=== PATIENT | male | born 2000 | race Caucasian/White ===

== ENCOUNTER 2023-05-14 17:17 | Emergency (ER) | payer SELFPAY ==
[2023-05-14 18:05] VITALS: BP 112/82; PULSE 65; RESP 16; O2SAT 100; BMI 50.3
--- NOTE | 2023-05-14 18:06 | ED_ITS ---
HPI - Extremity Injury (Upper) General Chief Complaint: Wound/Laceration Stated Complaint: split open finger at work Time Seen by Provider: 05/14/23 18:25 Source: patient, RN notes reviewed and old records reviewed Mode of arrival: ambulatory Limitations: no limitations History of Present Illness HPI narrative: 23 yo male with no significant past medical history presenting today with a laceration to his right pointer finger s/p cutting it on a putty knife at work 2 hours ago. Medic on site cleansed the area and placed a butterfly stitch, advising him to come to the ED for further evaluation. Reports mild pain to the R index finger. Tetanus unknown, denies injury to other area MD complaint: injury to: right Related Data Allergies Allergy/AdvReac Type Severity Reaction Status Date / Time No Known Allergies Allergy Verified 05/14/23 18:12 Review of Systems Review of Systems: Constitutional: No Fever, No Chills ENT/Mouth: No Ear Pain, No Nasal Congestion Cardiovascular: No Chest Pain, No SOB Respiratory: No Cough, No Sputum, No Wheezing Gastrointestinal: No Nausea, No Vomiting, No Diarrhea, No Constipation, No Abdominal pain Genitourinary: No Dysuria, No Urinary Frequency Musculoskeletal: + R pointer finger pain, No joint pain, No Myalgias, No Joint Swelling Skin: + skin laceration, No rash Neuro: No Weakness, No Numbness, No Paresthesias Yes all other systems are reviewed and are negative Constitutional: Constitutional: Reports as per HPI [facility] Past Medical History Attestation statement: The following information was validated with the patient. Source: old records reviewed and nursing notes reviewed Social History Social History Advance Directives: No Advance Directives Information Provided: No Physical Exam Vital Signs: Vital Signs: Last Vital Signs Temp 98.2 F 05/14/23 18:31 Pulse 54 05/14/23 18:31 Resp 16 05/14/23 18:31 BP 113/83 05/14/23 18:31 Pulse Ox 98 05/14/23 18:31 O2 Del Method Room Air 05/14/23 18:31 BMI result Body Mass Index 50.3 Const: General: cooperative, healthy appearing and no acute distress Orientation/consciousness: patient oriented x3 Limitations: no limitations Resp: Effort & Inspection: normal respiratory effort and no respiratory distress Cardio: Rate: regular rate Heart sounds: S1 normal heart sound present and S2 normal heart sound present Peripheral pulses: radial pulses present and ulnar radial pulses present Skin: Other: + 1cm linear superficial laceration noted over the right 2nd digit PIP. Underlying structures appear intact. NV intact. Normal range of motion. NV intact Rashes: no rashes Neuro: General: patient oriented x3 and tone normal Gait exam (Neuro): Normal gait present Extrem: General: Yes normal to inspection Medications Administered Discontinued Medications Generic Name Dose Route Start Last Admin Trade Name Freq PRN Reason Stop Dose Admin Diphtheria/Tetanus/Acell Pertussis 0.5 ml 05/14/23 18:12 05/14/23 18:19 Diphth,Pertus(Acell),Tet Adult 0.5 Ml Syringe IM 05/14/23 18:13 0.5 ml .ONCE ONE Administration Lidocaine HCl 2 ml 05/14/23 18:12 05/14/23 18:19 Lidocaine Hcl 1 % Mpf 2 Ml Vial INFILTRATI 05/14/23 18:13 2 ml ONCE ONE Administration Medical Decision Making Medical Decision Making MDM Narrative: 23 yo male with no significant past medical history presenting today with a laceration to his right pointer finger s/p cutting it on a putty knife at work 2 hours ago. On exam vital signs stable, NAD, nontoxic appearing physical exam as noted by with superficial laceration to right index finger PIP. Full range of motion and neurovascularly intact. Discussed Dermabond for suture repair, recommended suture repair as it is overlying joint, patient agreeable Will update tetanus and repair wound Results discussed with patient including worrisome signs and symptoms and strict return precautions, and when to return to the emergency department. They verbalized understanding and feel safe for discharge at this time. Differential Diagnosis Differential Diagnoses: The differential diagnosis associated with the presentation includes As above Admission/Observation Consideration of admission/observation: Escalation of care including admission/observation considered Radiology Impression Discussion of test interpretation with radiology: I have reviewed the radiologist's reading. External Record Review External record reviewed: Inpatient record, Office record, Outpatient record, Prior outpatient labs, Prior outpatient radiology, Primary care record and [facility] ED record Tests considered The following testing was considered but not selected: As above Prescription Management I considered prescription management with: Pain Medication and Antibiotic Procedures Laceration Laceration 1: Site: other (2nd digit) Side (If applicable): right Size (cm): 1 Description: linear Depth: simple, single layer Local Anesthetic: lidocaine 1% Amount of anesthesia used (mL): 2 Pre-repair: wound explored, irrigated extensively and deep structures intact Skin layer closed with: nylon Size (cm): 4-0 Number of sutures: 2 Technique: simple, interrupted Discharge Plan Discharge Clinical Impression: Laceration Patient Disposition: Home, Self-Care Instructions: Care For Your Stitches (ED), Laceration (ED) Additional Instructions: Your wounds were repaired today in the emergency department. Keep dry and clean. You need to return to any emergency department, urgent care, or your PCPs office in 7-10 days for suture removal Apply bacitracin and or Neosporin daily Once sutures are removed apply anti scar cream like Mederma If area begins look infected, is red, there is drainage, streaking, or you have fever please return to the emergency department Referrals: Physician,None [Primary Care Provider] - 1 week (For suture removal) Stand Alone Forms: Work/School Release
[2023-05-14] MEDS: Diphth,Pertus(ACell),Tet Adult 0.5 ML SYRINGE IM (18:19)
[2023-05-14] MEDS: Lidocaine HCl 1 % MPF 2 ML VIAL INFILTRATI (18:19)
[2023-05-14 18:31] VITALS: BP 113/83; PULSE 54; RESP 16; TEMP 36.8; O2SAT 98
--- NOTE | 2023-05-14 18:33 | MHC.EDTECH ---
NON STICK DRESSING APPLIED ON PATIENT RIGHT POINTER FINGER ,VITALS SIGN TAKEN .
--- NOTE | 2023-05-14 18:53 | PC.NURSE ---
Patient was discharged prior to this RN coming in.
== END 2023-05-14 18:53 | disposition home or self-care (01) ==
PROVIDERS: Emergency Provider Emergency Medicine
DX: S61.210A Laceration without foreign body of right index finger without damage to nail, initial encounter (principal); S60.410A Abrasion of right index finger, initial encounter; W26.9XXA Contact with unspecified sharp object(s), initial encounter; Y93.9 Activity, unspecified; Y92.9 Unspecified place or not applicable; Y99.0 Civilian activity done for income or pay; Z23 Encounter for immunization
CPT/HCPCS: 90471; 90715; 99283; 99284